=== PATIENT | female | born 1985 | race Caucasian/White ===

== ENCOUNTER 2021-04-19 02:18 | Inpatient (IN) | payer MEDICAID, SELFPAY ==
[~2021-04-19] VITALS: Ht 167.6 cm; Wt 115.2 kg
[2021-04-19 02:30] VITALS: BP 157/87
--- NOTE | 2021-04-19 02:33 | NUR ---
TO LOBBY A/W BED AMBULATORY
--- NOTE | 2021-04-19 03:35 | NUR ---
PT AMBULATED TO BED 02.
--- NOTE | 2021-04-19 03:38 | NUR ---
lab at bedside.
[2021-04-19 03:39] LABS: APPEARANCE,URINE CLEAR (CLEAR); BILIRUBIN,URINE NEGATIVE (NEGATIVE); BLOOD, URINE NEGATIVE (NEGATIVE); COLOR,URINE YELLOW (YELLOW); LEUKOCYTE ESTERASE ,URINE TRACE (NEGATIVE); NITRITE, URINE NEGATIVE (NEGATIVE); PH,URINE 5.5 (5.0-9.0); UGLUCOSE NEGATIVE (NEGATIVE)
--- NOTE | 2021-04-19 03:40 | NUR ---
35 yo f bib self with c/c of constant, burning 9/10 ruq pain x1am this morning. pt states pain rads to entire abd and back. +chills, +n/v x1 in lobby. denies fever and did not take medication for pain.pt reports when she has pain she has frequent bowel movements. pt states she has beem diagnosed with gallbladder stones, her surgeon dr.anthony Santana. instructed her to come to er if pain flares up and have er call for instructions for care. bowel sounds active x4, soft and round, tender to touch. denies hx and rx allerg:bendryl
[2021-04-19 03:45] LABS: BASOPHILS % (AUTO) 0.4 % (0.0-2.0); EOSINOPHILS # (AUTO) 0.1 K/uL (0-0.4); HEMATOCRIT 36.5 % (36-48); HEMOGLOBIN 12.1 g/dL (12.0-16.0); LYMPHOCYTES % (AUTO) 27.3 % (20.5-51.1); MEAN CORPUSCULAR HEMOGLOBIN 29 pg (27-31); MEAN CORPUSCULAR HGB CONC 33 g/dL (33-37); MEAN CORPUSCULAR VOLUME 86.7 fL (80-94); MONOCYTES # (AUTO) 0.5 K/uL (0.8-1.0); MONOCYTES % (AUTO) 7.1 % (1.7-9.3); NEUTROPHILS # (AUTO) 4.6 K/uL (1.8-7.7); NEUTROPHILS % (AUTO) 63.2 % (42.2-75.2); PLATELET COUNT (AUTO) 240 K/uL (140-450); RED BLOOD CELL COUNT(AUTO) 4.21 MIL/uL (4.20-5.40); RED CELL DISTRIBUTION WIDTH 14.1 % (11.6-13.7); WHITE BLOOD COUNT (AUTO) 7.3 K/uL (4.8-10.8)
[2021-04-19] MEDS ORDERED: KETOROLAC 15 MG/ML VIAL IM ONE (03:50)
[2021-04-19 03:51] LABS: RBC,URINE 0-5 /HPF (0-5)
[2021-04-19 04:00] LABS: ALBUMIN 3.5 g/dL (3.4-5.0); ANION GAP 12.8 (8-16); CREATININE 0.6 mg/dL (0.6-1.3); POTASSIUM 3.8 mmol/L (3.5-5.1); TOTAL BILIRUBIN 0.2 mg/dL (0.0-1.0)
--- NOTE | 2021-04-19 04:25 | NUR ---
pt states pain has decreased to 4/10, pt can tolerate. states she feels good enough to sleep.
[2021-04-19] MEDS ORDERED: cefTRIAXone 1,000 MG in LIDOCAINE MPF 1% 2.1 ML IM ONE (05:20)
[2021-04-19] MEDS ORDERED: LIDOCAINE MPF 1% 5 ML ONE (05:49)
[2021-04-19] MEDS ORDERED: cefTRIAXone 1,000 MG VIAL ONE ×2 (05:49)
--- NOTE | 2021-04-19 06:07 | NUR ---
pt is resting, equal rise and fall of chest wall. opens eyes to sound. vss. pt is in srable condition, bed locked in lowest position, side rails x2.
--- NOTE | 2021-04-19 07:19 | NUR ---
report given to davdi carty. transfer of care at this time.
--- NOTE | 2021-04-19 07:30 | NUR ---
received pt in [place] aox4. here for abdominal pain radiating to back hx of gallstones states this was similar episode. medicated by previous RN denies any pain at this time. pending dispo. NAD
--- NOTE | 2021-04-19 09:30 | NUR ---
pt denies pain or discomfort. resting in gurney pending dispo
[2021-04-19] MEDS ORDERED: HYDROcodone/APAP 5/325 MG 1 TAB TAB PO PRN (11:00)
[2021-04-19] MEDS ORDERED: MAG SULF 2000 MG/WATER PREMIX 50 ML IV PRN (11:00)
[2021-04-19] MEDS ORDERED: LORazepam 2 MG/ML VIAL IM/IVP PRN (11:00)
[2021-04-19] MEDS ORDERED: ACETAMINOPHEN 325 MG TAB PO PRN (11:00)
[2021-04-19] MEDS ORDERED: MORPHINE SULFATE 2 MG/ML SYR IVP PRN (11:00)
[2021-04-19] MEDS ORDERED: ONDANSETRON 4 MG/2 ML VIAL IM/IVP PRN (11:00)
[2021-04-19] MEDS ORDERED: POTASSIUM CHLORIDE 10 MEQ TABER PO PRN (11:00)
[2021-04-19] MEDS ORDERED: DOCUSATE SODIUM 100 MG GELCAP PO PRN (11:00)
[2021-04-19] MEDS ORDERED: ZOLPIDEM 5 MG TAB PO PRN (11:00)
--- NOTE | 2021-04-19 11:00 | NUR ---
per ermd 12 lead was done on pt and came back nsr at 89 hr.
[2021-04-19] MEDS: NACL 0.9% 1,000 ML IV SCH ×2 (11:14→19:21)
--- NOTE | 2021-04-19 11:15 | NUR ---
admitting md at bedside for assessment. IV inserted to left forearm #[id number] IV fluids infusing per order
[2021-04-19 11:19] LABS: PROTHROMBIN TIME 9.5 secs (10.8-13.4)
[2021-04-19 11:53] LABS: CHOL/HDL RATIO 3.6 (1-4.5); PHOSPHORUS 2.8 mg/dL (2.5-4.9); THYROID STIMULATING HORMONE 2.39 uIU/mL (0.34-3.74)
--- NOTE | 2021-04-19 12:31 | NUR ---
PT RESTING IN GURNEY IV INFUSING PER ORDER. REMAINS NPO PER ORDERS. DENIES PAIN OR DISCOMFORT. NAD. SAFETY MAINTAINED.
--- NOTE | 2021-04-19 14:17 | NUR ---
SPOKE TO RYLEE IN HIDA SCAN AT [facility], STATES PT CANNOT HAVE HIDA SCAN UNTIL 04/20 [id number], DR DAVIS MADE AWARE. PT WILL BE NPO AFTER MIDNIGHT.
--- NOTE | 2021-04-19 14:38 | NUR ---
REPORT GIVEN TO ALINA SHOEMAKER FOR CONTINUATION OF CARE
[2021-04-19 16:03] VITALS: BP 117/71
--- NOTE | 2021-04-19 16:30 | NUR ---
RECEIVED REPORT FROM ED NURSE. PT STABLE. NO S/S OF DISTRESS. CALL LIGHT IN REACH. ALL SAFETY MEASURES IN PLACE. PT DENIES PAIN AT THIS TIME. IV FLUIDS CONNECTED AND RUNNING PER MD ORDER.
--- NOTE | 2021-04-19 18:06 | NUR ---
PATIENT RESTING IN BED. IV FLUIDS RUNNING PER MD ORDER. ID BAND REPLACED. PT STABLE. NO S/S OF DISTRESS. BREATHING SYMMETRICAL. CALL LIGHT IN REACH. ALL SAFETY MEASURES IN PLACE.
--- NOTE | 2021-04-19 19:30 | NUR ---
ENDORSED PT TO SUSTAINABILITY CONSULTANT NURSE. PT STABLE. NO S/S OF DISTRESS. BREATHING SYMMETRICAL. CALL LIGHT IN REACH. ALL SAFETY MEASURES IN PLACE. IV RUNNING PER MD ORDER.
--- NOTE | 2021-04-19 19:30 | NUR ---
RECEIVED REPORT FROM RN DAYSHIFT NURSE AT BEDSIDE FOR CONTINUITY OF CARE, PT IN STABLE CONDITION.
[2021-04-19 20:00] VITALS: BP 119/78
--- NOTE | 2021-04-19 20:00 | NUR ---
ROUNDS DONE, PT LYING IN BED NO C/O VOICED, IV SITE INTACT FLUIDS RUNNING ORDERED. V/S FOLLOWS: T 97.5 P 70 R 20 B/P 119/78 02 97% ON ROOM AIR. ALL UNIVERSAL FALLS PRECAUTIONS IN PLACE.
--- NOTE | 2021-04-19 21:15 | NUR ---
PT GIVEN ORDERED HEPARIN SQ SHOT, EDUCATION REGARDING MEDICATION AND ITS PURPOSE PROVIDED AT BEDSIDE, PT VERBALIZED UNDERSTANDING. N/S RUNNING ORDERED IV SITE FLUSHED PATENT. ALL UNIVERSAL FALLS PRECAUTIONS IN PLACE. PT DENIES ANY PAIN AT THIS TIME.
[2021-04-19 22:20] LABS: BARBITURATE, URINE NEGATIVE ng/ml (NEG <=200); BENZODIAZEPINE, URINE NEGATIVE ng/mL (NEG <=200); CANNABINOID, URINE NEGATIVE ng/mL (NEG <=50); COCAINE, URINE NEGATIVE ng/mL (NEG <=300); OPIATE, URINE NEGATIVE ng/mL (NEG <=2000); PHENCYCLIDINE SCREEN,URINE NEGATIVE ng/mL (NEG <=25)
--- NOTE | 2021-04-19 22:30 | NUR ---
RECEIVED A CALL FROM MAGALI AT [facility], PT WILL BE HAVING THE HIDA SCAN TEST DONE IN THE LATE AM 10:30-11 AM. SPOKE WITH PT WHO UNDERSTANDS THAT SHE NEEDS TO BE NPO. PT ASLO ASKED IF SHE MIGHT BE AND PT SAID SHE JUST RECENTLY FINISHED HER MONTHLY MENSUS.
--- NOTE | 2021-04-20 00:30 | NUR ---
ROUNDS DONE, PT IN BED RESTING NO S/S OF PAIN OR DISTRESS NOTED.
--- NOTE | 2021-04-20 02:30 | NUR ---
ROUNDS DONE, PT SLEEPING NO S/S OF PAIN OR DISTRESS NOTED,.MAYELA;L SALINE RUNNING ORDERED. ALL UNIVERSAL PRECAUTIONS IN PLACE.
[2021-04-20] MEDS: NACL 0.9% 1,000 ML IV SCH ×2 (03:42→11:06)
[2021-04-20 04:00] VITALS: BP 135/99
--- NOTE | 2021-04-20 05:35 | NUR ---
PT SITTING UP IN BED AOX4 IV SITE INTACT, NEW BAG OF NORMAL SALINE HUNG AND IS RUNNING ORDERED. V/S FOLLOWS; T 97.1 P 79 R 20 B/P 135/99 02 98% ON ROOM AIR,. PT DENIES ANY PAIN OR DISCOMFORT ALL ORDERED PRECAUTIONS IN PLACE.
--- NOTE | 2021-04-20 07:12 | NUR ---
RECEIVED REPORT FROM ROSIN BARREL FILLER NURSE. PT STABLE. NO S/S OF DISTRESS. CALL LIGHT IN REACH. ALL SAFETY MEASURES IN PLACE. IV RUNNING PER MD ORDER
[2021-04-20 07:46] LABS: ANION GAP 11.4 (8-16); BASOPHILS % (AUTO) 0.4 % (0.0-2.0); CARBON DIOXIDE 26.5 mmol/L (21-32); CREATININE 0.6 mg/dL (0.6-1.3); EOSINOPHILS # (AUTO) 0.2 K/uL (0-0.4); EOSINOPHILS % (AUTO) 2.8 % (0.0-4.0); HEMATOCRIT 36.4 % (36-48); HEMOGLOBIN 11.9 g/dL (12.0-16.0); LYMPHOCYTES # (AUTO) 2.3 K/uL (2.5-16.5); LYMPHOCYTES % (AUTO) 39.5 % (20.5-51.1); MEAN CORPUSCULAR HEMOGLOBIN 29 pg (27-31); MEAN CORPUSCULAR HGB CONC 33 g/dL (33-37); MONOCYTES # (AUTO) 0.4 K/uL (0.8-1.0); MONOCYTES % (AUTO) 6.9 % (1.7-9.3); NEUTROPHILS # (AUTO) 2.9 K/uL (1.8-7.7); NEUTROPHILS % (AUTO) 50.4 % (42.2-75.2); PLATELET COUNT (AUTO) 233 K/uL (140-450); POTASSIUM 3.9 mmol/L (3.5-5.1); RED BLOOD CELL COUNT(AUTO) 4.13 MIL/uL (4.20-5.40); WHITE BLOOD COUNT (AUTO) 5.7 K/uL (4.8-10.8)
[2021-04-20 07:51] LABS: MAGNESIUM 2.1 mg/dL (1.8-2.4); PHOSPHORUS 2.6 mg/dL (2.5-4.9)
[2021-04-20 08:00] VITALS: BP 129/75
[2021-04-20 10:06] LABS: T4 (THYROXINE) 5.7 ug/dL (4.5-12.0)
--- NOTE | 2021-04-20 10:11 | NUR ---
PATIENT HAS BEEN SCREENED AND CATEGORIZED LOW NUTRITION RISK. PATIENT WILL BE SEEN WITHIN 7 DAYS OF ADMISSION. 04/25/[address]
--- NOTE | 2021-04-20 11:00 | NUR ---
TECH ARRIVED FOR PICKUP FOR HIDA SCAN. ASSISTED PT TO WHEELCHAIR. IV SALINE LOCKED. NO S/S OF DISTRESS. ALL SAFETY MEASURES IN PLACE. NOTIFIED MD OF RADIOLOGY REQUEST FOR MORPHINE 2MG PRN FOR PROCEDURE TO ILLICIT RESPONSE IF NEEDED.
[2021-04-20] MEDS ORDERED: MORPHINE SULFATE 2 MG/ML SYR IVP PRN (11:25)
--- NOTE | 2021-04-20 11:31 | NUR ---
RECEIVED MD ORDER FOR MORPHINE 2MG IVP PRN FOR PROCEDURE RESPONSE.
--- NOTE | 2021-04-20 13:36 | NUR ---
PT RETURNED. IN BED WITH VISITOR AT BEDSIDE. NO S/S OF DISTRESS. CALL LIGHT IN REACH. ALL SAFETY MEASURES IN PLACE. Addendum: 04/20/21 at 1339 by Francisco Bravo RN RN IV CONNECTED, PATENT. FLUIDS RUNNING PER MD ORDER.
[2021-04-20] MEDS ORDERED: SULF-59 PO (14:58)
--- NOTE | 2021-04-20 15:58 | NUR ---
PT RESTING IN BED. FAMILY AT BEDSIDE. NO S/S OF DISTRESS. BREATHING SYMMETRICAL. PT STABLE. CALL LIGHT IN REACH. ALL SAFETY MEASURES IN PLACE.
[2021-04-20 16:00] VITALS: BP 128/86
--- NOTE | 2021-04-20 17:54 | NUR ---
DC PLANNING PATIENT IS A 35-YEAR-OLD FEMALE ADMITTED ON A 04/19/21 FROM THE [facility]/ED DUE TO ABDOMINAL PAIN. (PATIENT IS TAJIK SPEAKING ONLY). SW MET WITH PATIENT AT BEDSIDE TO DISCUSS AND GATHER HER COLLATERAL INFORMATION. PATIENT REPORTED LIVING AT HOME WITH HER 2 YEAR OLD DAUGHTER AND 8YR OLD SON. PATIENT REPORTED LIVING AT HER SISTER'S HOME WITH HER SISTER WHO IS HER EMERGENCY CONTACT WELL HUONG VARNER. SHE DISCLOSED SHE DID NOT HAVE ADVANCE DIRECTIVES AND SHE GOT THE INF. PACKET PROVIDED BY LAMIN. PATIENT REPORTED NOT HAVING ANY ISSUES GETTING OR TAKING HER MEDICATIONS FROM [facility] NEAR HER HOME. PATIENT STATED NOT HAVING OR NEEDING DME AT HOME, AND BEEN ACTIVE AND INDEPENDENT TO AMBULATE. PATIENT REPORTED GOING TO A CLINIC IN [facility] AND SEEING MD JUAREZ BREWER THERE WHEN SHE NEEDS TO SE AN MD. PATIENT REPORTED TO LAMIN THAT SHE WILL BE ASSISTED BY HER SISTER HUONG WITH TRANSPORTATION BACK HOME WHEN SHE IS READY TO DC AND BE PROJECT LEADER FROM [facility]. SW THANK HER FOR HER INF. AND LEFT HER ROOM. LAMIN WILL FOLLOW UP NEEDED.
--- NOTE | 2021-04-20 18:38 | NUR ---
PT EDUCATED ON DISCHARGE PLAN. PT VERBALIZED UNDERSTANDING AND SIGNED. IV REMOVED, CANULA INTACT. FAMILY AT BEDSIDE TO TRANSPORT. PT STABLE. CALL LIGHT IN REACH. ALL SAFETY MEASURES IN PLACE.
--- NOTE | 2021-04-20 18:53 | NUR ---
PT ESCORTED OUT WITH FAMILY. NO S/S OF DISTRESS. ALL PERSONAL PROPERTY IN POSSESSION. ALL SAFETY MEASURES IN PLACE.
== END 2021-04-20 18:20 | disposition home or self-care (01) ==
LOC: MED 02:18 → MMU 10:58 → MTU 14:53
DX: K80.20 Calculus of gallbladder without cholecystitis without obstruction (principal); R16.0 Hepatomegaly, not elsewhere classified; E66.9 Obesity, unspecified; N39.0 Urinary tract infection, site not specified; E86.0 Dehydration; Z20.822 Contact with and (suspected) exposure to COVID-19; Z68.41 Body mass index [BMI] 40.0-44.9, adult; Z88.8 Allergy status to other drugs, medicaments and biological substances
CPT/HCPCS: 36415; 71045; 76705; 78445; 80048; 80053; 80305; 81001; 83036; 83690; 83735; 83880; 84100; 84134; 84436; 84443; 84703; 85025; 85610; 85730; 86886; 86900; 86901; 87086; 93005; 96372; 99285; A9510; J0696; J1644; J1885; J2001; Q0092

== ENCOUNTER 2021-04-30 02:40 | Inpatient (IN) | payer MEDICAID, SELFPAY ==
[~2021-04-30] VITALS: Ht 167.6 cm; Wt 114.3 kg
[~2021-04-30 02:40] MED LIST: SULF-59 PO
[2021-04-30 02:46] VITALS: BP 148/93
--- NOTE | 2021-04-30 02:52 | NUR ---
patient ambulated to bed 4 with urine cup in hand for urine collection
--- NOTE | 2021-04-30 02:55 | NUR ---
Received in bed 4 with c/o right sided flank pain that started at 0200 today. patient has nausea denies taking nay medication. patient was here last week with the same complaint. pmh: denies allergies: benadryl
--- NOTE | 2021-04-30 02:57 | NUR ---
Dr Flores at bedside for exam
[2021-04-30] MEDS ORDERED: NACL 0.9% 1,000 ML IV SCH (03:05)
[2021-04-30] MEDS ORDERED: ONDANSETRON 4 MG/2 ML VIAL IVP ONE (03:05)
[2021-04-30] MEDS ORDERED: MORPHINE SULFATE 4 MG/ML SYR IVP ONE (03:05)
[2021-04-30 03:29] LABS: APPEARANCE,URINE CLEAR (CLEAR); BILIRUBIN,URINE NEGATIVE (NEGATIVE); BLOOD, URINE NEGATIVE (NEGATIVE); COLOR,URINE YELLOW (YELLOW); LEUKOCYTE ESTERASE ,URINE TRACE (NEGATIVE); NITRITE, URINE POSITIVE (NEGATIVE); UGLUCOSE NEGATIVE (NEGATIVE)
--- NOTE | 2021-04-30 03:43 | NUR ---
AMBULATED TO BR WITH STEADY GAIT
[2021-04-30 03:45] LABS: ALBUMIN 3.1 g/dL (3.4-5.0); ANION GAP 12.5 (8-16); CARBON DIOXIDE 25.3 mmol/L (21-32); CREATININE 0.7 mg/dL (0.6-1.3); POTASSIUM 3.8 mmol/L (3.5-5.1); TOTAL BILIRUBIN 0.2 mg/dL (0.0-1.0)
[2021-04-30 03:47] LABS: RBC,URINE 0-5 /HPF (0-5)
[2021-04-30] MEDS ORDERED: MORPHINE SULFATE 10 MG/ML VIAL IVP ONE (04:10)
[2021-04-30] MEDS ORDERED: KETOROLAC 30 MG/ML VIAL IVP ONE (04:10)
[2021-04-30] MEDS ORDERED: PROCHLORPERAZINE 10 MG/2 ML VIAL IVP ONE (04:10)
[2021-04-30 04:24] LABS: BASOPHILS % (AUTO) 0.4 % (0.0-2.0); EOSINOPHILS # (AUTO) 0.2 K/uL (0-0.4); EOSINOPHILS % (AUTO) 3.5 % (0.0-4.0); HEMATOCRIT 34.1 % (36-48); HEMOGLOBIN 11.2 g/dL (12.0-16.0); LYMPHOCYTES # (AUTO) 2.5 K/uL (2.5-16.5); LYMPHOCYTES % (AUTO) 35.7 % (20.5-51.1); MEAN CORPUSCULAR HEMOGLOBIN 29 pg (27-31); MEAN CORPUSCULAR HGB CONC 33 g/dL (33-37); MEAN CORPUSCULAR VOLUME 86.8 fL (80-94); MONOCYTES # (AUTO) 0.5 K/uL (0.8-1.0); MONOCYTES % (AUTO) 7.9 % (1.7-9.3); NEUTROPHILS # (AUTO) 3.7 K/uL (1.8-7.7); NEUTROPHILS % (AUTO) 52.5 % (42.2-75.2); PLATELET COUNT (AUTO) 225 K/uL (140-450); RED BLOOD CELL COUNT(AUTO) 3.93 MIL/uL (4.20-5.40); RED CELL DISTRIBUTION WIDTH 13.9 % (11.6-13.7)
--- NOTE | 2021-04-30 05:30 | NUR ---
AMBULATED TO NURSES STATION WITH STEADY GAIT THEN RETURNED TO BED. TOLERATED WELL
--- NOTE | 2021-04-30 05:39 | NUR ---
pt to be admitted
--- NOTE | 2021-04-30 07:55 | NUR ---
PATIENT APPEARS TO BE RESTING WITH EYES CLOSED, PLACED IN GOWN AND PLACED ON BEDSIDE FINANCIAL SALES PROFESSIONAL, VSS. WILL CONTINUE TO MONITOR.
[2021-04-30] MEDS ORDERED: ONDANSETRON 4 MG/2 ML VIAL IM/IVP PRN (08:40)
[2021-04-30] MEDS ORDERED: SODIUM PHOS / POTASSIUM PHOS 1 PKT PDR PO PRN (08:40)
[2021-04-30] MEDS ORDERED: HYDROcodone/APAP 5/325 MG 1 TAB TAB PO PRN ×2 (08:40→14:10)
[2021-04-30] MEDS ORDERED: MORPHINE SULFATE 2 MG/ML SYR IVP PRN (08:40)
[2021-04-30] MEDS ORDERED: DOCUSATE SODIUM 100 MG GELCAP PO PRN (08:40)
[2021-04-30] MEDS ORDERED: MAG SULF 2000 MG/WATER PREMIX 50 ML IV PRN (08:40)
[2021-04-30] MEDS ORDERED: POTASSIUM CHLORIDE 40 MEQ, LIDOCAINE MPF 1% 25 MG in NACL 0.9% 250 ML IV PRN (08:40)
[2021-04-30] MEDS ORDERED: ACETAMINOPHEN 325 MG TAB PO PRN (08:40)
[2021-04-30] MEDS ORDERED: cefTRIAXone 1,000 MG VIAL ONE (09:02)
[2021-04-30] MEDS: PANTOPRAZOLE 40 MG INJ VIAL IVP SCH (09:11)
[2021-04-30 09:26] LABS: PHOSPHORUS 3.1 mg/dL (2.5-4.9)
[2021-04-30] MEDS: DEXT 5% /NACL 0.9% 1,000 ML IV SCH ×2 (09:40→21:10)
--- NOTE | 2021-04-30 11:20 | NUR ---
PATIENT APPEARS TO BE RESTING WITH EYES CLOSED, ON BEDSIDE BESSEMER BOTTOM MAKER, VSS. LIGHTS DIMMED FOR COMFORT, WILL CONTINUE TO MONITOR.
--- NOTE | 2021-04-30 11:57 | NUR ---
DR. CONLEY BEDSIDE EVALUATING PATIENT
--- NOTE | 2021-04-30 12:05 | NUR ---
Patient will be admitted to care of DR. CONLEY. Admited to Med/Surg. Will go to room 106A. Belongings list completed. Report to ELISEO SHOEMAKER.
--- NOTE | 2021-04-30 12:18 | NUR ---
RECEIVED PATIENT REPORT FROM SAHARA GOMES. AWAITING FOR PATIENT TO ARRIVE TO THE UNIT.
[2021-04-30] MEDS ORDERED: fentaNYL citrate 0.05 MG/ML VIAL ONE (12:33)
[2021-04-30] MEDS ORDERED: PROPOFOL 200 MG/20 ML VIAL IV ONE (12:34)
[2021-04-30] MEDS ORDERED: MEPERIDINE 25 MG/ML SYR ONE (12:34)
[2021-04-30] MEDS ORDERED: ROCURONIUM 50 MG/5 ML VIAL IV ONE (12:34)
[2021-04-30] MEDS ORDERED: LIDOCAINE MPF 2% 100 MG/5 ML VIAL INJ ONE (12:34)
[2021-04-30] MEDS ORDERED: DEXAMETHASONE 4 MG/ML VIAL ONE (12:35)
[2021-04-30] MEDS ORDERED: NEOSTIGMINE 1:1000 10 MG/10 ML VIAL ONE (12:35)
[2021-04-30] MEDS ORDERED: METOCLOPRAMIDE 10 MG/2 ML INJ VIAL ONE (12:35)
[2021-04-30] MEDS ORDERED: SUCCINYLCHOLINE CHLORIDE 200 MG/10 ML VIAL IVP ONE (12:35)
[2021-04-30] MEDS ORDERED: ONDANSETRON 4 MG/2 ML VIAL ONE (12:35)
[2021-04-30] MEDS ORDERED: GLYCOPYRROLATE 0.2 MG/ML VIAL ONE (12:35)
[2021-04-30] MEDS ORDERED: KETOROLAC 30 MG/ML VIAL ONE (12:36)
--- NOTE | 2021-04-30 12:37 | NUR ---
OR STAFF BEDSIDE TO TAKE PATIENT TO OR.
[2021-04-30] MEDS ORDERED: ETOMIDATE 20 MG/10 ML VIAL IVP ONE (12:38)
[2021-04-30] MEDS ORDERED: SEVOFLURANE 250 ML BTL INH ONE (12:45)
[2021-04-30] MEDS ORDERED: BUPIVACAINE-MPF/EPI 0.5% 30 ML VIAL INJ ONE (12:57)
[2021-04-30] MEDS ORDERED: LIDOCAINE 1% 500 MG/50 ML VIAL ONE (12:58)
[2021-04-30] MEDS ORDERED: ONDANSETRON 4 MG/2 ML VIAL IVP PRN (13:40)
[2021-04-30] MEDS ORDERED: MEPERIDINE 25 MG/ML SYR IVP PRN (13:40)
[2021-04-30] MEDS ORDERED: fentaNYL citrate 0.05 MG/ML VIAL IVP PRN (13:40)
[2021-04-30 15:00] VITALS: BP 137/86
[2021-04-30] MEDS: LACTATED RINGERS 1,000 ML IV SCH ×2 (15:00→22:00)
--- NOTE | 2021-04-30 15:00 | NUR ---
RECEIVED PATIENT FROM OR NURSE VIA [facility]. PATIENT IS AOX4, ABLE TO MAKE NEEDS KNOWN. ON ROOM AIR AND NO RESPIRATORY DISTRESS NOTED. SKIN IS WARM, DRY, AND NON-INTACT. NOTED 3 DERMABOND SITES ON ABD, NO DRAINAGE NOTED, HEADER DOCK. IV SITE ON LAC 18G, INFUSING FLUIDS WELL. ABD SOFT, FLAT, AND NON-DISTENED. BOWEL SOUNDS HYPOACTIVE IN ALL QUADRANTS. COMPLAINS OF PAIN AT SURGICAL SITE. WILL MEDICATE ORDERED. PLAN OF CARE DISCUSSED. SAFETY PRECAUTIONS IN PLACE. CALL LIGHT WITHIN REACH. WILL CONTINUE TO MONITOR.
[2021-04-30 16:00] VITALS: BP 138/92
[2021-04-30] MEDS: HYDROmorphone 1 MG/ML AMP IVP PRN (16:18)
--- NOTE | 2021-04-30 16:18 | NUR ---
PT COMPLAINED OF SURGICAL SITE PAIN ON ABD 9. ADMINISTERED PRN PAIN MEDICATIONS PER MD ORDERED.
--- NOTE | 2021-04-30 19:35 | NUR ---
ENDORSED TO HEAVY EQUIPMENT SALES MANAGER NURSE FOR CONTINUITY OF CARE. PT IS STABLE.
[2021-04-30 20:00] VITALS: BP 127/73
--- NOTE | 2021-04-30 20:00 | NUR ---
RECEIVED BEDSIDE REPORT FROM DAY RN FOR CONTINUITY OF CARE. PATIENT A/A/OX4 STANDING AT THE BEDSIDE. FAMILY AT THE BEDSIDE. PATIENT DENIES ANY PAIN AT THIS TIME AND NOT IN ANY DISTRESS. PT S/P CHOLECYSTECTOMY WITH 3 ABDOMINAL LAP SITES WITH DERMABOND ALL C/D/I. IVF INFUSING ORDERED. CALL LIGHT WITHIN REACH. WILL CONTINUE POC.
[2021-04-30] MEDS ORDERED: SIMETHICONE 80 MG TAB.CHEW PO PRN (21:45)
--- NOTE | 2021-04-30 21:45 | NUR ---
PATIENT COMPLAINING OF GAS PAIN AND REQUESTING FOR MEDICATION. PAGED DR DAVIS WHO IS ASSOCIATE SALES REPRESENTATIVE AND SPOKE WITH MD. OBTAINED AN ORDER FOR VALE BERGERON.
--- NOTE | 2021-05-01 02:03 | NUR ---
PATIENT ASLEEP AT THIS TIME. VISIBLE CHEST RISE AND FALL NOTED. WILL CONTINUE OBSERVATION.
[2021-05-01 04:00] VITALS: BP 131/81
[2021-05-01] MEDS: HYDROmorphone 1 MG/ML AMP IVP PRN (04:27)
--- NOTE | 2021-05-01 04:30 | NUR ---
PATIENT C/O ABDOMINAL PAIN AND REQUESTED FOR PAIN MED, PAIN 9/10. PRN DILAUDID GIVEN ORDERED.
[2021-05-01 06:05] LABS: BASOPHILS % (AUTO) 0.2 % (0.0-2.0); HEMATOCRIT 33.9 % (36-48); HEMOGLOBIN 11.2 g/dL (12.0-16.0); LYMPHOCYTES # (AUTO) 1.6 K/uL (2.5-16.5); LYMPHOCYTES % (AUTO) 13.1 % (20.5-51.1); MEAN CORPUSCULAR HEMOGLOBIN 29 pg (27-31); MEAN CORPUSCULAR HGB CONC 33 g/dL (33-37); MEAN CORPUSCULAR VOLUME 86.9 fL (80-94); MONOCYTES # (AUTO) 0.6 K/uL (0.8-1.0); MONOCYTES % (AUTO) 5.1 % (1.7-9.3); NEUTROPHILS # (AUTO) 9.8 K/uL (1.8-7.7); NEUTROPHILS % (AUTO) 81.6 % (42.2-75.2); PLATELET COUNT (AUTO) 248 K/uL (140-450); RED CELL DISTRIBUTION WIDTH 14.3 % (11.6-13.7)
[2021-05-01 06:10] LABS: ANION GAP 13.2 (8-16); CREATININE 0.6 mg/dL (0.6-1.3); POTASSIUM 4.2 mmol/L (3.5-5.1)
--- NOTE | 2021-05-01 06:21 | NUR ---
PATIENT STABLE. NO SIGN AND SYMPTOMS OF DISTRESS NOTED AND NO COMPLAIN AT THIS TIME. ALL NEEDS ATTENDED. WILL ENDORSE THE PATIENT TO THE ONCOMING RN FOR CONTINUITY OF CARE.
--- NOTE | 2021-05-01 07:25 | NUR ---
ENDORSED THE PATIENT TO THE ONCOMING RN WHITLEY FOR CONTINUITY OF CARE. PATIENT STABLE. SIGNING OFF.
[2021-05-01 08:00] VITALS: BP 115/73
--- NOTE | 2021-05-01 08:34 | NUR ---
PATIENT HAS BEEN SCREENED AND CATEGORIZED MODERATE NUTRITION RISK. PATIENT WILL BE SEEN WITHIN 3-5 DAYS OF ADMISSION. 05/02/2021-05/04/[address]
[2021-05-01] MEDS ORDERED: NACL 0.9% 500 ML IV SCH (09:00)
[2021-05-01] MEDS: PANTOPRAZOLE 40 MG INJ VIAL IVP SCH (10:31)
[2021-05-01] MEDS ORDERED: DOCU-299 PO (11:53)
[2021-05-01 11:56] VITALS: BP 115/73
== END 2021-05-01 13:05 | disposition home or self-care (01) | DRG 710 ==
LOC: MED 02:40 → MMU 06:03 → MTU 11:50
PROVIDERS: ADMIT Hospitalist; ATTEND Hospitalist
PROC: 0FT44ZZ Resection of Gallbladder, Percutaneous Endoscopic Approach (ICD-10-PCS; principal; 2021-04-30 14:00)
DX: A41.9 Sepsis, unspecified organism (principal); E44.1 Mild protein-calorie malnutrition; K80.00 Calculus of gallbladder with acute cholecystitis without obstruction; R16.0 Hepatomegaly, not elsewhere classified; Z20.822 Contact with and (suspected) exposure to COVID-19; D64.9 Anemia, unspecified; N39.0 Urinary tract infection, site not specified; E66.01 Morbid (severe) obesity due to excess calories; Z79.899 Other long term (current) drug therapy; Z88.8 Allergy status to other drugs, medicaments and biological substances; Z98.891 History of uterine scar from previous surgery; Z68.41 Body mass index [BMI] 40.0-44.9, adult
CPT/HCPCS: 36415; 76705; 80048; 80053; 81001; 83690; 83735; 84100; 85025; 87086; 88304; 96365; 96375; 96376; 99285; C9113; J0330; J0696; J0780; J1100; J1170; J1885; J2001; J2175; J2270; J2405; J2704; J2710; J2765; J3010; J3490; J7030; J7060; J7120; Q0092

== ENCOUNTER 2021-06-22 07:34 | Inpatient (IN) | payer MEDICAID, SELFPAY ==
[~2021-06-22] VITALS: Ht 167.6 cm; Wt 109.8 kg
[~2021-06-22 07:34] MED LIST changes: +DOCU-299 PO; -SULF-59 PO
[2021-06-22 07:43] VITALS: BP 140/108
--- NOTE | 2021-06-22 09:30 | NUR ---
rt collected abg at this time
--- NOTE | 2021-06-22 09:36 | NUR ---
ekg in triage at this time
--- NOTE | 2021-06-22 09:37 | NUR ---
35 y/o female tested positive for covid 14 days ago and has been having sob with general fatigue. pt denies anyone else sick in household. pt denies cough, fevers or sore throat. denies n/v/d. skin is pink/warm/dry/ aa&ox4 with even and steady gait, lungs crackles bl, hr even and regular. pt denies any fever or cough at this time. pt states pain of 7/10 chest pain at this time. ermd made aware of pt status. pmh: htn med: non compliant with htn meds nka
--- NOTE | 2021-06-22 09:51 | NUR ---
covid gricelda and flu swabbed. labs collected in triage room, given to samuel hernandez
[2021-06-22 10:18] LABS: ALBUMIN 3.4 g/dL (3.4-5.0); ANION GAP 12.6 (8-16); CARBON DIOXIDE 28.3 mmol/L (21-32); CREATININE 0.7 mg/dL (0.6-1.3); POTASSIUM 3.9 mmol/L (3.5-5.1); TOTAL BILIRUBIN 0.4 mg/dL (0.0-1.0)
[2021-06-22 10:27] LABS: BASOPHILS % (AUTO) 0.2 % (0.0-2.0); EOSINOPHILS % (AUTO) 0.3 % (0.0-4.0); HEMATOCRIT 43.6 % (36-48); HEMOGLOBIN 14.6 g/dL (12.0-16.0); LYMPHOCYTES # (AUTO) 1.6 K/uL (2.5-16.5); LYMPHOCYTES % (AUTO) 15.1 % (20.5-51.1); MEAN CORPUSCULAR HEMOGLOBIN 29 pg (27-31); MEAN CORPUSCULAR HGB CONC 33 g/dL (33-37); MEAN CORPUSCULAR VOLUME 86.5 fL (80-94); MONOCYTES # (AUTO) 0.6 K/uL (0.8-1.0); MONOCYTES % (AUTO) 5.4 % (1.7-9.3); NEUTROPHILS # (AUTO) 8.4 K/uL (1.8-7.7); PLATELET COUNT (AUTO) 326 K/uL (140-450); RED BLOOD CELL COUNT(AUTO) 5.04 MIL/uL (4.20-5.40); RED CELL DISTRIBUTION WIDTH 13.3 % (11.6-13.7); WHITE BLOOD COUNT (AUTO) 10.6 K/uL (4.8-10.8)
[2021-06-22 11:13] LABS: PROTHROMBIN TIME 9.2 secs (10.8-13.4)
[2021-06-22] MEDS ORDERED: KETOROLAC 30 MG/ML VIAL IVP ONE (13:00)
--- NOTE | 2021-06-22 13:03 | NUR ---
Pt moved to bed 02.
[2021-06-22] MEDS ORDERED: cefTRIAXone 1,000 MG VIAL ONE (13:13)
--- NOTE | 2021-06-22 13:45 | NUR ---
Pt resting in high-fowlers position with cardiac cath technologist in place. SpO2 94% on room air. Bed locked in lowest position, side rails x 2 for pt safety.
--- NOTE | 2021-06-22 15:50 | NUR ---
Patient states +relief to pain 5/10 at this time. Denies nausea, chest pain, headache, fever/chills. Bed locked in lowest position, side rails x 2. RR 22, SpO2 95% on room air.
--- NOTE | 2021-06-22 16:34 | NUR ---
Pt reports having a headache because she has not eaten. Advised of dinner meal times and sandwich provided per request. All pt needs met.
[2021-06-22] MEDS ORDERED: ACETAMINOPHEN 325 MG TAB PO PRN (16:45)
[2021-06-22] MEDS ORDERED: ONDANSETRON 4 MG/2 ML VIAL IM/IVP PRN (16:45)
[2021-06-22] MEDS ORDERED: guaiFENesin DM 200/20 MG-10 ML 10 ML UDC PO PRN (16:45)
[2021-06-22] MEDS ORDERED: DOCUSATE SODIUM 100 MG GELCAP PO PRN (16:45)
[2021-06-22] MEDS ORDERED: POTASSIUM CHLORIDE 10 MEQ TABER PO PRN (16:45)
[2021-06-22] MEDS ORDERED: HYDROcodone/APAP 7.5/325 MG 1 TAB PO PRN (16:45)
[2021-06-22] MEDS ORDERED: ZOLPIDEM 5 MG TAB PO PRN (16:45)
[2021-06-22] MEDS ORDERED: ALBUTEROL SULFATE/IPRATROPIU 3 ML SOL IH PRN (16:50)
[2021-06-22] MEDS: AZITHROMYCIN 250 MG TAB PO SCH (17:58)
--- NOTE | 2021-06-22 17:58 | NUR ---
NOVEL to CPT Amie at ER bedside
[2021-06-22 18:00] LABS: ALBUMIN 3.4 g/dL (3.4-5.0); ANION GAP 18.3 (8-16); CARBON DIOXIDE 26.8 mmol/L (21-32); CREATININE 0.6 mg/dL (0.6-1.3); FREE T4 (FREE THYROXINE) 1.37 ng/dL (0.76-1.46); PHOSPHORUS 4.4 mg/dL (2.5-4.9); POTASSIUM 4.1 mmol/L (3.5-5.1); THYROID STIMULATING HORMONE 1.35 uIU/mL (0.34-3.74); TOTAL BILIRUBIN 0.4 mg/dL (0.0-1.0)
[2021-06-22] MEDS: NACL 0.9% 1,000 ML IV SCH (18:09)
--- NOTE | 2021-06-22 18:15 | NUR ---
Patient unable to void; states she went prior. Bedpan at bedside.
[2021-06-22] MEDS: ALBUTEROL SULFATE/IPRATROPIU 3 ML SOL IH SCH (19:00)
--- NOTE | 2021-06-22 19:20 | NUR ---
Report and transfer of care endorsed to SAHARA Medina
--- NOTE | 2021-06-22 19:27 | NUR ---
PT LAYING IN BED LOCKED IN LOWEST POSITION W X1 SIDERAIL UP. PT DENIES SOB, DIZZYNESS, HEADACE, PAIN OR OTHER SYMPTOMS AT THIS TIME. ALL NEEDS MET. VSS ON MONITOR. NAD NOTED, WILL CONTINUE TO MONITOR.
[2021-06-22] MEDS ORDERED: ACET-10509 PO (19:30)
[2021-06-22] MEDS ORDERED: BACI1PAC6 TP (19:30)
--- NOTE | 2021-06-22 19:33 | NUR ---
PT UNABLE TO PROVIDE URINE AT THIS TIME.
--- NOTE | 2021-06-22 21:34 | NUR ---
Pt report given to SAHARA THOMAS. Transfer of care at this time.
--- NOTE | 2021-06-22 22:27 | NUR ---
Patient will be admitted to care of DR. AMAYA. Admited to MED/SURG. Will go to room 113. Belongings list completed. Report to SAHARA THOMAS.
[2021-06-22 22:40] VITALS: BP 109/70
--- NOTE | 2021-06-22 22:45 | NUR ---
RECEIVED PT FOR CONTINUITY OF CARE FROM ER. PT WAS TRANSPORTED IN A WHEELCHAIR. PT IS ON RA SATING 97%. AAOX4. RIGHT AC 20 GAUGE WITH NS RUNNING AT 60 ML/HR. SKIN INTACT. PT WAS EDUCATED HEMSTITCHING MACHINE OPERATOR LIGHT SYSTEM, ROOM ENVIRONMENT, AND STAFF. CALL LIGHT WITHIN REACH. BED AT THE LOWEST POSITION. HEAD OF BED RAISED. ALL SAFETY MEASURES TAKEN. WILL CONTINUE TO MONITOR THE PT.
[2021-06-22 23:07] LABS: CHOL/HDL RATIO 4.3 (1-4.5)
--- NOTE | 2021-06-23 | NUR ---
PT IS SLEEPING IN BED. NO SIGNS OF DISTRESS NOTED. BREATHING IS SYMMETRICAL AND UNLABORED. CALL LIGHT WITHIN REACH. ALL SAFETY MEASURES TAKEN. WILL CONTINUE TO MONITOR THE PT.
--- NOTE | 2021-06-23 02:38 | NUR ---
PT IS SLEEPING IN BED. PT IS NOT IN ANY DISTRESS. CALL LIGHT WITHIN REACH. BEDSIDE TABLE WITHIN REACH. BED AT THE LOWEST POSITION. ALL SAFETY MEASURES TAKEN. WILL CONTINUE TO MONITOR THE PT.
[2021-06-23 04:00] VITALS: BP 102/62
--- NOTE | 2021-06-23 04:05 | NUR ---
PT IS SLEEPING IN BED. PT IS NOT IN ANY DISTRESS. BREATHING SYMMETRICAL AND UNLABORED. CALL LIGHT WITHIN REACH. ALL SAFETY MEASURES TAKEN. WILL CONTINUE TO MONITOR THE PT.
[2021-06-23] MEDS: NACL 0.9% 1,000 ML IV SCH (05:00)
--- NOTE | 2021-06-23 06:10 | NUR ---
PT IS SLEEPING IN BED. PT IS NOT IN ANY DISTRESS. BREATHING SYMMETRICAL AND UNLABORED. CALL LIGHT WITHIN REACH. ALL SAFETY MEASURE TAKEN. WILL CONTINUE TO MONITOR THE PT.
[2021-06-23 06:44] LABS: APPEARANCE,URINE SL CLOUDY (CLEAR); BILIRUBIN,URINE NEGATIVE (NEGATIVE); COLOR,URINE YELLOW (YELLOW); LEUKOCYTE ESTERASE ,URINE NEGATIVE (NEGATIVE); NITRITE, URINE NEGATIVE (NEGATIVE); UGLUCOSE NEGATIVE (NEGATIVE)
[2021-06-23 06:57] LABS: BARBITURATE, URINE NEGATIVE ng/ml (NEG <=200); BENZODIAZEPINE, URINE NEGATIVE ng/mL (NEG <=200); CANNABINOID, URINE NEGATIVE ng/mL (NEG <=50); COCAINE, URINE NEGATIVE ng/mL (NEG <=300); OPIATE, URINE NEGATIVE ng/mL (NEG <=2000); PHENCYCLIDINE SCREEN,URINE NEGATIVE ng/mL (NEG <=25)
[2021-06-23 07:07] LABS: BASOPHILS % (AUTO) 0.2 % (0.0-2.0); EOSINOPHILS # (AUTO) 0.2 K/uL (0-0.4); EOSINOPHILS % (AUTO) 2.7 % (0.0-4.0); HEMATOCRIT 35.7 % (36-48); HEMOGLOBIN 12.1 g/dL (12.0-16.0); LYMPHOCYTES # (AUTO) 1.5 K/uL (2.5-16.5); LYMPHOCYTES % (AUTO) 23.3 % (20.5-51.1); MEAN CORPUSCULAR HEMOGLOBIN 29 pg (27-31); MEAN CORPUSCULAR HGB CONC 34 g/dL (33-37); MEAN CORPUSCULAR VOLUME 86.1 fL (80-94); MONOCYTES # (AUTO) 0.5 K/uL (0.8-1.0); MONOCYTES % (AUTO) 8.3 % (1.7-9.3); NEUTROPHILS # (AUTO) 4.3 K/uL (1.8-7.7); NEUTROPHILS % (AUTO) 65.5 % (42.2-75.2); PLATELET COUNT (AUTO) 282 K/uL (140-450); RED BLOOD CELL COUNT(AUTO) 4.14 MIL/uL (4.20-5.40); RED CELL DISTRIBUTION WIDTH 13.2 % (11.6-13.7); WHITE BLOOD COUNT (AUTO) 6.6 K/uL (4.8-10.8)
[2021-06-23 07:07] LABS: T4 (THYROXINE) 10.6 ug/dL (4.5-12.0)
[2021-06-23 07:16] LABS: BLOOD, URINE 1+ (NEGATIVE)
[2021-06-23 07:17] LABS: RBC,URINE 0-5 /HPF (0-5); WBC,URINE 0-5 /HPF (0-5)
[2021-06-23 07:19] LABS: ANION GAP 11.2 (8-16); CARBON DIOXIDE 31.5 mmol/L (21-32); CREATININE 0.7 mg/dL (0.6-1.3); POTASSIUM 3.7 mmol/L (3.5-5.1)
--- NOTE | 2021-06-23 07:24 | NUR ---
ENDORSED TO DAY SHIFT RN FOR CONTINUITY OF CARE. PT IS STABLE.
--- NOTE | 2021-06-23 07:25 | NUR ---
RECEIVE REPORT FROM ELECTRONIC SYSTEMS SECURITY ASSESSMENT NURSE FOR CONTINUITY OF PATIENT CARE. PATIENT AWAKE AND ALERT. PATIENT ON ROOM AIR. NO ACUTE DISTRESS NOTED. CALL LIGHT WITHIN REACH. WILL CONTINUE TO MONITOR.
[2021-06-23 08:00] VITALS: BP 105/69
[2021-06-23] MEDS: ALBUTEROL SULFATE/IPRATROPIU 3 ML SOL IH SCH ×3 (08:01→19:00)
--- NOTE | 2021-06-23 09:03 | NUR ---
PATIENT HAS BEEN SCREENED AND CATEGORIZED MODERATE NUTRITION RISK. PATIENT WILL BE SEEN WITHIN 3-5 DAYS OF ADMISSION. 06/23/21 06/27/[address]
[2021-06-23] MEDS: AZITHROMYCIN 250 MG TAB PO SCH (09:26)
[2021-06-23] MEDS: PANTOPRAZOLE 40 MG TABEC PO SCH (09:26)
--- NOTE | 2021-06-23 09:41 | NUR ---
PATIENT AWAKE AND ALERT. PATIENT ON ROOM AIR. NO ACUTE DISTRESS NOTED. SCHEDULED MEDICATION GIVEN. PATIENT CON DROPLET PRECAUTIONS. CALL LIGHT WITHIN REACH. WILL CONTINUE TO MONITOR.
--- NOTE | 2021-06-23 11:48 | NUR ---
PUSH CONNECTOR ASSEMBLER AT BEDSIDE. PATIENT AWAKE AND ALERT. PATIENT ON ROOM AIR. NO ACUTE DISTRESS NOTED. PATIENT ON DROPLET PRECAUTIONS. CALL LIGHT WITHIN REACH. WILL CONTINUE TO MONITOR.
[2021-06-23 12:00] VITALS: BP 105/69
--- NOTE | 2021-06-23 13:58 | NUR ---
PATIENT AWAKE AND ALERT. PATIENT ON ROOM AIR. NO ACUTE DISTRESS NOTED. PATIENT DENIES PAIN AT THIS TIME. PATIENT ON DROPLET PRECAUTIONS. CALL LIGHT WITHIN REACH. WILL CONTINUE TO MONITOR.
--- NOTE | 2021-06-23 15:47 | NUR ---
PATIENT SLEEPING. BREATHING EVEN AND UNLABORED. PATIENT ON ROOM AIR. NO ACUTE DISTRESS NOTED. O2 SAT 98%. PATIENT DENIES PAIN AT THIS TIME. PATIENT ON DROPLET PRECAUTIONS. CALL LIGHT WITHIN REACH. WILL CONTINUE TO MONITOR.
[2021-06-23 16:00] VITALS: BP 101/61
--- NOTE | 2021-06-23 17:02 | NUR ---
PATIENT AWAKE AND ALERT. PATIENT ON ROOM AIR. NO ACUTE DISTRESS NOTED. PATIENT DENIES PAIN AT THIS TIME. PATIENT O2 SATING AT 97%. PATIENT ON DROPLET PRECAUTIONS. CALL LIGHT WITHIN REACH. WILL CONTINUE TO MONITOR.
--- NOTE | 2021-06-23 18:00 | NUR ---
DR. MINA CALLED TO GET UPDATE ON PATIENT.
--- NOTE | 2021-06-23 19:28 | NUR ---
ENDORSED TO TAIL DOGGER NURSE FOR CONTINUITY OF PATIENT CARE. PATIENT STABLE.
[2021-06-23 20:00] VITALS: BP 113/63
[2021-06-24] VITALS: BP 119/69
[2021-06-24] MEDS: NACL 0.9% 1,000 ML IV SCH (02:40)
[2021-06-24 04:00] VITALS: BP 118/64
--- NOTE | 2021-06-24 07:15 | NUR ---
RECEIVED REPORT FROM COCOA PRESS OPERATOR NURSE FOR CONTINUITY OF CARE. PT IS IN BED AT THIS TIME, SLEEPING. RESPIRATIONS ARE EVEN AND UNLABORED. NO SIGNS OF DISTRESS NOTED. NO COMPLAINTS OF PAIN OR DISCOMFORT NOTED. PT IS ALERT AND ORIENTED X4. PT IS ABLE TO AMBULATE. CALL LIGHT WITHIN REACH. ALL SAFETY MEASURES IN PLACE. WILL CONTINUE TO MONITOR.
[2021-06-24 07:20] LABS: BASOPHILS % (AUTO) 0.3 % (0.0-2.0); EOSINOPHILS # (AUTO) 0.2 K/uL (0-0.4); EOSINOPHILS % (AUTO) 2.7 % (0.0-4.0); HEMATOCRIT 34.5 % (36-48); HEMOGLOBIN 11.6 g/dL (12.0-16.0); LYMPHOCYTES # (AUTO) 1.5 K/uL (2.5-16.5); LYMPHOCYTES % (AUTO) 22.2 % (20.5-51.1); MEAN CORPUSCULAR HEMOGLOBIN 29 pg (27-31); MEAN CORPUSCULAR HGB CONC 34 g/dL (33-37); MEAN CORPUSCULAR VOLUME 86.1 fL (80-94); MONOCYTES # (AUTO) 0.7 K/uL (0.8-1.0); MONOCYTES % (AUTO) 10.5 % (1.7-9.3); NEUTROPHILS # (AUTO) 4.3 K/uL (1.8-7.7); NEUTROPHILS % (AUTO) 64.3 % (42.2-75.2); PLATELET COUNT (AUTO) 307 K/uL (140-450); RED BLOOD CELL COUNT(AUTO) 4.01 MIL/uL (4.20-5.40); RED CELL DISTRIBUTION WIDTH 13.2 % (11.6-13.7); WHITE BLOOD COUNT (AUTO) 6.7 K/uL (4.8-10.8)
[2021-06-24 07:30] LABS: ANION GAP 13.1 (8-16); CARBON DIOXIDE 27.9 mmol/L (21-32); CREATININE 0.6 mg/dL (0.6-1.3)
[2021-06-24 08:00] VITALS: BP 110/67
[2021-06-24] MEDS: PANTOPRAZOLE 40 MG TABEC PO SCH (08:28)
[2021-06-24] MEDS: AZITHROMYCIN 250 MG TAB PO SCH (08:28)
--- NOTE | 2021-06-24 08:29 | NUR ---
ADMINISTERED ALL SCHEDULED MEDICATIONS. EDUCATED PT ON MEDS ADMINISTERED. ANSWERED ALL QUESTIONS. WILL CONTINUE TO MONITOR.
[2021-06-24] MEDS ORDERED: DEXAMETHASONE 4 MG TAB PO SCH (09:00)
[2021-06-24] MEDS ORDERED: PANT40EC56 PO (11:07)
[2021-06-24] MEDS ORDERED: VIT PO (11:07)
[2021-06-24] MEDS ORDERED: ASPI-1749 PO (11:07)
[2021-06-24] MEDS ORDERED: AZIT250T11 PO (11:07)
[2021-06-24 11:11] VITALS: BP 110/67
--- NOTE | 2021-06-24 11:45 | NUR ---
RECEIVED DISCHARGE ORDER. STARTED DISCHARGE PAPERWORK. WENT OVER PAPERWORK WITH PT. EDUCATED PT ON MEDICATIONS FOR DISCHARGE. ANSWERED ALL QUESTIONS. PT SIGNED ALL PAPERWORK. PT STATED HER WILL COME AND PICK HER UP IN 15 MIN.
--- NOTE | 2021-06-24 12:40 | NUR ---
PT DISCHARGED HOME VIA PRIVATE VEHICLE, ACCOMPANIED BY SPOUSE. IV CATHETER REMOVED, IV CATHETER INTACT. REMOVED WRIST BAND. ALL BELONGINGS TAKEN UPON DISCHARGE.
--- NOTE | 2021-06-24 13:15 | NUR ---
DC PLANNING: PATIENT ADMITTED FROM HOME WITH C/O SOB AND CHEST PAIN, HAS TESTED POSITIVE FOR COVID. SATTING IN THE 80'S IN ED, CXR SHOWED PNA AND GROUND GLASS OPACITIES. ORDERS FOR ID AND PULMO CONSULTS, RECOMMENDING DEXAMETHASONE PO AND BRONCHODILATORS BY PULMO, ID STATES DEXA NOT NEEDED, PO ABX APPROPRIATE. ON RA AND SATTING 94-98%, NO DC NEEDS IDENTIFIED. DC HOME WHEN CLINICALLY STABLE, CM TO FOLLOW NEEDED.
== END 2021-06-24 12:40 | disposition home or self-care (01) | DRG 720 ==
LOC: MED 07:34 → MTU 16:35
PROVIDERS: ADMIT Family Medicine; ATTEND Family Medicine
DX: A41.89 Other specified sepsis (principal); J96.00 Acute respiratory failure, unspecified whether with hypoxia or hypercapnia; J12.82 Pneumonia due to coronavirus disease 2019; U07.1 COVID-19; R74.01 Elevation of levels of liver transaminase levels; E86.0 Dehydration; E66.9 Obesity, unspecified; Z98.891 History of uterine scar from previous surgery; Z68.39 Body mass index [BMI] 39.0-39.9, adult
CPT/HCPCS: 36415; 36600; 71045; 71275; 80048; 80053; 80305; 81001; 82150; 82803; 83036; 83605; 83690; 83735; 83880; 84100; 84436; 84439; 84443; 84479; 84484; 85025; 85379; 85610; 85730; 87040; 87081; 87804; 93005; 94640; 96365; 96375; 99291; J0696; J1885; J7060; Q9967; U0003

== ENCOUNTER 2021-08-08 16:41 | Emergency (ER) | payer MEDICAID, SELFPAY ==
[~2021-08-08] VITALS: Ht 167.6 cm; Wt 114.3 kg
[~2021-08-08 16:41] MED LIST changes: +ASPI-1749 PO; +AZIT250T11 PO; +PANT40EC56 PO; +VIT PO
[2021-08-08 16:53] VITALS: BP 151/101
--- NOTE | 2021-08-08 17:00 | NUR ---
NAIN ORTIZ EXAMINING PT
[2021-08-08] MEDS ORDERED: FLUC150T PO (17:27)
[2021-08-08] MEDS ORDERED: PRED20TA5 PO (17:27)
[2021-08-08] MEDS ORDERED: KEN.1O TP (17:27)
[2021-08-08 17:33] VITALS: BP 151/101
--- NOTE | 2021-08-08 17:33 | NUR ---
No nursing interventions implemented. Patient discharged with v/s stable. Written and verbal after care instructions given and explained. Patient alert, oriented and verbalized understanding of instructions. Ambulatory with steady gait. All questions addressed prior to discharge. ID band removed. Patient advised to follow up with PMD. Rx of DIFLUCAN, KENALOG, DELTASONE given. Patient educated on indication of medication including possible reaction and side effects. Opportunity to ask questions provided and answered.
== END 2021-08-08 17:33 | disposition home or self-care (01) ==
LOC: MED 16:41
DX: T78.40XA Allergy, unspecified, initial encounter (principal); B37.9 Candidiasis, unspecified; I10 Essential (primary) hypertension; Z79.899 Other long term (current) drug therapy; X58.XXXA Exposure to other specified factors, initial encounter
CPT/HCPCS: 99283

== ENCOUNTER 2022-01-19 09:27 | Emergency (ER) | payer MEDICAID ==
[~2022-01-19] VITALS: Ht 167.6 cm; Wt 126.1 kg
[~2022-01-19 09:27] MED LIST changes: +FLUC150T PO; +KEN.1O TP; +PRED20TA5 PO
[2022-01-19 09:33] VITALS: BP 150/93
--- NOTE | 2022-01-19 09:39 | NUR ---
PT AMB TO BED 2.
[2022-01-19 10:16] LABS: BASOPHILS % (AUTO) 0.4 % (0.0-2.0); EOSINOPHILS # (AUTO) 0.2 K/uL (0-0.4); EOSINOPHILS % (AUTO) 3.7 % (0.0-4.0); HEMATOCRIT 38.2 % (36-48); HEMOGLOBIN 12.8 g/dL (12.0-16.0); LYMPHOCYTES # (AUTO) 1.6 K/uL (2.5-16.5); LYMPHOCYTES % (AUTO) 32.3 % (20.5-51.1); MEAN CORPUSCULAR HEMOGLOBIN 30 pg (27-31); MEAN CORPUSCULAR HGB CONC 33 g/dL (33-37); MONOCYTES # (AUTO) 0.5 K/uL (0.8-1.0); MONOCYTES % (AUTO) 9.8 % (1.7-9.3); NEUTROPHILS # (AUTO) 2.7 K/uL (1.8-7.7); NEUTROPHILS % (AUTO) 53.8 % (42.2-75.2); PLATELET COUNT (AUTO) 211 K/uL (140-450); RED BLOOD CELL COUNT(AUTO) 4.29 MIL/uL (4.20-5.40); RED CELL DISTRIBUTION WIDTH 12.9 % (11.6-13.7)
[2022-01-19 10:24] LABS: ANION GAP 12.5 (8-16); CARBON DIOXIDE 25.5 mmol/L (21-32); CREATININE 0.7 mg/dL (0.6-1.3)
--- NOTE | 2022-01-19 10:25 | NUR ---
PT IN GOWN
--- NOTE | 2022-01-19 10:41 | NUR ---
36YR OLD FEMALE BIB SELF C/O NUMBNESS TO UPPER AND LOWER EXT. DENIES PAIN 0/10. TINGLING AND NUMBNESS [id number]. DENIES ANY MUSCLE WEAKNESS. PT IS SHAKY AT TIMES. STATES SOB THIS AM AND LAST NIGHT. NO DISTRESS NOTED AND SPEAKING IN FULL SENTENCES. A&OX4 TRISTANIAN SPEAKING ONLY. COVID POSITIVE IN MAY 2020 BENADRYL HTN
[2022-01-19 11:01] LABS: APPEARANCE,URINE CLEAR (CLEAR); BILIRUBIN,URINE NEGATIVE (NEGATIVE); BLOOD, URINE 3+ (NEGATIVE); COLOR,URINE YELLOW (YELLOW); LEUKOCYTE ESTERASE ,URINE NEGATIVE (NEGATIVE); NITRITE, URINE NEGATIVE (NEGATIVE); PH,URINE 5.5 (5.0-9.0); UGLUCOSE NEGATIVE (NEGATIVE)
[2022-01-19 11:03] LABS: ALBUMIN 3.3 g/dL (3.4-5.0); THYROID STIMULATING HORMONE 1.83 uIU/mL (0.34-3.74); TOTAL BILIRUBIN 0.3 mg/dL (0.0-1.0)
[2022-01-19 11:21] LABS: RBC,URINE 80-100 /HPF (0-5); WBC,URINE 0-5 /HPF (0-5)
--- NOTE | 2022-01-19 11:28 | NUR ---
36/F PRESENTS TO ED WITH C/O NUMBNESS TO BILATERAL ARM AND LEGS THAT WORSENS WHILE AT REST. PATIENT REPORTS RECENT COLD SYMPTOMS THAT HAVE SINCE RESOLVED, REPORTS TWO NEGATIVE COVID TESTS, DENIES CP, SOB, N/V/D.
[2022-01-19 12:49] VITALS: BP 145/96
--- NOTE | 2022-01-19 12:49 | NUR ---
Patient discharged with v/s stable. Written and verbal after care instructions ABOUT PARESTHESIA given and explained. Patient verbalized understanding. Ambulatory with steady gait. All questions addressed prior to discharge. Advised to follow up with PMD.
--- NOTE | 2022-01-19 12:50 | NUR ---
The patient's care was reviewed and supervised by Priscila Gregorio RN.
== END 2022-01-19 12:49 | disposition home or self-care (01) ==
LOC: MED 09:27
DX: R20.2 Paresthesia of skin (principal); I10 Essential (primary) hypertension; Z90.49 Acquired absence of other specified parts of digestive tract; Z98.890 Other specified postprocedural states
CPT/HCPCS: 36415; 80053; 81001; 81025; 82550; 84443; 85025; 87086; 99283

== ENCOUNTER 2023-03-27 10:12 | Emergency (ER) | payer MEDICAID ==
[~2023-03-27] VITALS: Ht 167.6 cm; Wt 125.6 kg
[2023-03-27 10:52] VITALS: BP 156/91; PULSE 107; RESP 18; TEMP 97.8; O2SAT 99
[2023-03-27 11:20] LABS: APPEARANCE,URINE CLEAR (CLEAR); BILIRUBIN,URINE NEGATIVE (NEGATIVE); BLOOD, URINE TRACE-I (NEGATIVE); COLOR,URINE YELLOW (YELLOW); LEUKOCYTE ESTERASE ,URINE TRACE (NEGATIVE); NITRITE, URINE NEGATIVE (NEGATIVE); PROTEIN,URINE NEGATIVE (NEGATIVE); UGLUCOSE NEGATIVE (NEGATIVE); UROBILINOGEN,URINE 0.2 EU/dL (0.2 - 1)
[2023-03-27 11:29] LABS: BACTERIA,URINE FEW /HPF (None Seen); RBC,URINE 0-5 /HPF (0-5); WBC,URINE 0-5 /HPF (0-5)
[2023-03-27 11:30] LABS: SQUAMOUS EPITHELIAL CELL,UR 4-10 (MOD) /LPF (0-3 (FEW))
[2023-03-27 11:32] LABS: BASOPHILS % (AUTO) 0.5 % (0.0-2.0); EOSINOPHILS # (AUTO) 0.1 K/uL (0-0.4); EOSINOPHILS % (AUTO) 1.5 % (0.0-4.0); HEMOGLOBIN 12.9 g/dL (12.0-16.0); LYMPHOCYTES # (AUTO) 1.8 K/uL (2.5-16.5); LYMPHOCYTES % (AUTO) 25.9 % (20.5-51.1); MEAN CORPUSCULAR HEMOGLOBIN 30 pg (27-31); MEAN CORPUSCULAR HGB CONC 34 g/dL (33-37); MEAN CORPUSCULAR VOLUME 88.4 fL (80-94); MONOCYTES # (AUTO) 0.4 K/uL (0.8-1.0); MONOCYTES % (AUTO) 5.6 % (1.7-9.3); NEUTROPHILS # (AUTO) 4.6 K/uL (1.8-7.7); NEUTROPHILS % (AUTO) 66.5 % (42.2-75.2); PLATELET COUNT (AUTO) 287 K/uL (140-450); RED BLOOD CELL COUNT(AUTO) 4.29 MIL/uL (4.20-5.40); RED CELL DISTRIBUTION WIDTH 12.7 % (11.6-13.7); WHITE BLOOD COUNT (AUTO) 6.9 K/uL (4.8-10.8)
[2023-03-27 11:53] LABS: ALBUMIN 3.6 g/dL (3.4-5.0); ANION GAP 11.5 (8-16); CALCIUM 9.4 mg/dL (8.5-10.1); CARBON DIOXIDE 25.8 mmol/L (21-32); CREATININE 0.6 mg/dL (0.6-1.3); POTASSIUM 4.3 mmol/L (3.5-5.1); TOTAL BILIRUBIN 0.4 mg/dL (0.0-1.0); TOTAL PROTEIN, SERUM 7.7 g/dL (6.4-8.2)
[2023-03-27] MEDS ORDERED: cephALEXin 500 MG CAP PO ONE (12:10)
[2023-03-27] MEDS ORDERED: DICYCLOMINE HCL LIQUID 20 MG, ALUMINUM HYD/MAG/SIMETHICONE 30 ML, LIDOCAINE VISCOUS 2% ... PO ONE ×3 (12:10)
[2023-03-27] MEDS ORDERED: DICYCLOMINE HCL LIQUID 10 MG/5 ML UDC ONE (12:18)
[2023-03-27] MEDS ORDERED: ALUMINUM HYD/MAG/SIMETHICONE 30 ML UDC ONE (12:18)
[2023-03-27] MEDS ORDERED: MAA30 PO (12:41)
[2023-03-27] MEDS ORDERED: BISM262C53 PO (12:41)
[2023-03-27] MEDS ORDERED: SIME80TA41 PO (12:41)
[2023-03-27 13:11] VITALS: BP 148/88; PULSE 101; RESP 18; TEMP 97.6; O2SAT 98
== END 2023-03-27 13:11 | disposition home or self-care (01) ==
LOC: MED 10:12
DX: R14.0 Abdominal distension (gaseous) (principal); K30 Functional dyspepsia; I10 Essential (primary) hypertension; Z90.49 Acquired absence of other specified parts of digestive tract; Z98.890 Other specified postprocedural states; Z79.899 Other long term (current) drug therapy; Z79.82 Long term (current) use of aspirin; Z79.2 Long term (current) use of antibiotics
CPT/HCPCS: 36415; 80053; 81001; 81025; 83690; 85025; 99283